=== PATIENT | female | born 1955 | race Two or more races ===

== ENCOUNTER 2017-03-28 08:25 | Day surgery (SDC) | payer MEDICARE, OTHER ==
--- NOTE | 2017-03-27 19:31 | Pre-op HX & Phy Repo 2 SIG ---
DATE OF ADMISSION: 03/28/2017 The patient is scheduled for surgery on 03/28/2017 CHIEF COMPLAINT: Gallstones. History Of Present Illness: This 61-year-old morbidly obese, diabetic female presents with a three year history of recurring upper abdominal pain, sometimes accompanied by nausea. She was found to have gallstones. She denies any history of jaundice or fever. PAST MEDICAL HISTORY: Previous section x1. ALLERGIES: None known. Medications: Aspirin 81 mg, omeprazole 40 mg a day, metformin, and Lantus insulin sliding scale. SOCIAL HISTORY: Tobacco, none. Alcohol, none. Family History: Positive for malignancy of the patient's father and grandmother. There is no family history of diabetes and hypertension. REVIEW OF SYSTEMS: Essentially negative. PHYSICAL EXAMINATION: General: Reveals a moderately obese, female, in no acute distress. HEENT: Normocephalic. Pupils are equal and reactive to light. There was no scleral icterus. NECK: Supple without adenopathy. LUNGS: Clear. HEART: Showed a regular rhythm. Abdomen: Abdomen was massive. There were no masses. There was some discomfort in the right upper quadrant. There is reducible umbilical hernia. There is a low midline scar from previous section. IMPRESSION: 1. Cholelithiasis. 2. Diabetes mellitus. 3. Morbid obesity. Plan: The patient will undergo the laparoscopic cholecystectomy, possible open cholecystectomy. The nature, risks, and benefits of the procedure were explained. Saleem Cabrera M.D. DR: DARRON JOB#: [id number] CC:
[2017-03-28] VITALS (13 sets, daily range): BP systolic 118–163; BP diastolic 60–77
[~2017-03-28] VITALS: Ht 157.5 cm; Wt 79.4 kg
--- NOTE | 2017-03-28 08:29 | Pre-Procedure Note/Attestation ---
Pre-Procedure Note/Attestation Complete Prior to Procedure Planned Procedure: not applicable Procedure Narrative: laparoscopic cholecystectomy, possible open cholecystectomy, possible cholangiogram Indications for Procedure Pre-Operative Diagnosis: cholelithiasis Attestation I attest that I discussed the nature of the procedure; its benefits; risks and complications; and alternatives (and the risks and benefits of such alternatives ), prior to the procedure, with the patient (or the patient's legal manufacturer's service representative). I attest that, if there was a reasonable possibility of needing a blood transfusion, the patient (or the patient's legal manufacturer's service representative) was given the [facility] standardized written summary, pursuant to the [employer] Blood Safety Act ([place] Health and Safety Code # 1645, as amended). I attest that I re-evaluated the patient just prior to the surgery and that there has been no change in the patient's H&P, except as documented below:none Saleem Cabrera MD Mar 28, 2017 08:29
[2017-03-28] MEDS ORDERED: CAL MAG ZINC +1 EAC1 PO (08:49)
[2017-03-28] MEDS ORDERED: GABAPENTIN600 MG ORAL (08:49)
[2017-03-28] MEDS ORDERED: ASPIR 8181 MG ORAL (08:49)
[2017-03-28] MEDS ORDERED: PAROXETINE HCL30 MG ORAL (08:49)
[2017-03-28] MEDS ORDERED: METFORMIN HCL850 M1 ORAL (08:49)
[2017-03-28] MEDS ORDERED: MELOXICAM7.5 MG/5 M ORAL (08:49)
[2017-03-28] MEDS ORDERED: LIPITOR80 MG ORAL (08:49)
[2017-03-28] MEDS ORDERED: OMEPRAZOLE20 M3 ORAL (08:49)
[2017-03-28] MEDS ORDERED: IBUPROFEN600 MG ORAL (08:49)
[2017-03-28] MEDS ORDERED: LANTUS SOL100 UNIT/1 SUBQ (09:16)
[2017-03-28] MEDS ORDERED: Bupivacaine w/Epi 0.25% 30ml Vial INJ ONE (09:34)
[2017-03-28] MEDS ORDERED: Propofol 200mg/20ml IV ONE (09:34)
[2017-03-28] MEDS ORDERED: Zemuron 50mg/5ml Inj IV ONE (09:45)
[2017-03-28] MEDS ORDERED: fentaNYL 100 mcg/2 mL IV ONE (09:45)
[2017-03-28] MEDS ORDERED: Ketorolac 30mg Inj ONE (09:45)
[2017-03-28] MEDS ORDERED: Glycopyrrolate 0.2mg/ml 1ml Vial ONE (09:45)
[2017-03-28] MEDS ORDERED: Midazolam 2mg/2ml Inj ONE (09:45)
[2017-03-28] MEDS ORDERED: Sodium Chloride 10ml vial INJ ONE (09:45)
[2017-03-28] MEDS ORDERED: Lidocaine 1% MPF 10mg/ml 5ml ONE (09:45)
[2017-03-28] MEDS ORDERED: Succinylcholine 20mg/ml 10ml vial ONE (09:45)
[2017-03-28] MEDS ORDERED: LR 1000ml ONE (09:45)
[2017-03-28] MEDS ORDERED: ePHEDrine 50mg/ml Inj ONE (09:45)
[2017-03-28] MEDS ORDERED: NS Irrig 1000ml ONE (09:45)
[2017-03-28] MEDS ORDERED: Sterile Water Irrig 1000ml IRRIG ONE (09:45)
[2017-03-28] MEDS ORDERED: Neostigmine 1mg/ml 10ml Inj ONE (09:45)
[2017-03-28] MEDS ORDERED: NS Irrig 1000ml IRRIG ONE (10:00)
[2017-03-28] MEDS ORDERED: LR 1000ml 1,000 ML IVLG SCH (10:47)
--- NOTE | 2017-03-28 10:47 | Anethesia Preoperative Eval ---
Anesthesia Pre-op PMH/ROS General Date of Evaluation: Mar 28, 2017 Time of Evaluation: 09:40 Anesthesiologist: Mady ASA Score: ASA 3 Mallampati Score Class I : Soft palate, uvula, fauces, pillars visible Class II: Soft palate, uvula, fauces visible Class III: Soft palate, base of uvula visible Class IV: Only hard plate visible Mallampati Classification: Class III Surgeon: Rick Diagnosis: Symptomatic cholelitiasis Surgical Procedure: Laparoscopic cholecystectomy Anesthesia History: none Family History: no anesthesia problems Allergies: Coded Allergies: No Known Allergies (Unverified , 03/27/17) Medications: see eMAR Past Medical History Cardiovascular: Reports: HTN, Denies: CAD, [place], valve dz, arrhythmia, other Pulmonary: Reports: YARITZA, Denies: asthma, COPD, other Gastrointestinal/Genitourinary: Reports: GERD, Denies: CRI, ESRD, other Neurologic/Psychiatric: Denies: dementia, CVA, depression/anxiety, TIA, other Endocrine: Reports: DM - on insulin, Denies: hypothyroidism, steroids, other HEENT: Denies: cataract (L), cataract (R), glaucoma, KALTAG (L), KALTAG (R), other Hematology/Immune: Denies: anemia, DVT, bleeding disorder, other Musculoskeletal/Integumentary: Reports: DJD, Denies: OA, RA, DDD, edema, other Other: obesity - morbid obesity, weights at list a 110 kg. BMI around 45 PMH Narrative: as above, recurrent abdominal pain PSxH Narrative: Anesthesia Pre-op Phys. Exam Physician Exam Last Vital Signs Date Time Temp Pulse Resp B/P (MAP) Pulse Ox O2 Delivery O2 Flow Rate FiO2 03/28/17 09:06 97.5 59 17 136/77 94 Room Air Constitutional: NAD Neurologic: CN 2-12 intact Cardiovascular: RRR Respiratory: other - diminished breath sounds Gastrointestinal: other - morbid obesity Airway Exam Mallampati Score: Class III MO: full Neck: short ROM: limited Teeth: intact Dentures: no upper, no lower Anesthesia Pre-op A/P Labs see chart Accucheck 129 at admission Studies Pre-op Studies: EKG - NSR Risk Assessment & Plan Assessment: ASA 3 Plan: GA with ETT Considering patients preexisting condition - morbid obesity YARITZA she may not be a good candidate for outpatient procedure for better pain control and safe monitoring I would suggest 23 hour inpatient observation. Status Change Before Surgery: No Pre-Antibiotics Drug: Ancef 1 gr. Given Within 1 Hr of Incision: Yes Time Given: 10:12 ROLANDA ANAYA M.D. Mar 28, 2017 10:47
[2017-03-28] MEDS ORDERED: Hydromorphone 0.5mg/0.5ml inj IVP PRN (11:00)
[2017-03-28] MEDS ORDERED: Midazolam 2mg/2ml Inj IVP PRN (11:00)
[2017-03-28] MEDS ORDERED: Ketorolac 30mg Inj IV PRN (11:00)
[2017-03-28] MEDS ORDERED: Meperidine 25mg/0.5ml Inj (FOR RIGORS ONLY) IV PRN (11:00)
[2017-03-28] MEDS ORDERED: DiphenhydrAMINE 50mg/ml Inj IVP PRN (11:00)
[2017-03-28] MEDS ORDERED: Metoclopramide 10mg/2ml Inj IVP PRN (11:00)
--- NOTE | 2017-03-28 11:14 | Brief Operative Note ---
Immediate Post Operative Note Operative Note Pre-op Diagnosis: cholelithiasis Procedure: laparoscopic cholecystectomy Post-op Diagnosis: cholelithiasis Surgeon: Lucía Cabrera MD Dog Sitter: Deja Cherry MD Anesthesiologist: Carl Earl MD Anesthesia: general Specimen: yes Complications: none Condition: stable Fluids: 800 ml Estimated Blood Loss: minimal Drains: none Implant(s) used?: No Saleem Cabrera MD Mar 28, 2017 11:13
[2017-03-28] MEDS ORDERED: Norco 5mg/325mg tab ORAL PRN (11:15)
[2017-03-28] MEDS ORDERED: HYDROmorphone 1mg/ml Carpuject SUBQ PRN (11:15)
[2017-03-28] MEDS ORDERED: Tylenol #3 tab (300mg/30mg) ORAL PRN (11:15)
[2017-03-28] MEDS ORDERED: D5 1/2NS 1,000 ML IV SCH (11:15)
--- NOTE | 2017-03-28 11:25 | Immediate Post-Op Evaluation ---
Immediate Post-Op Evalulation Immediate Post-Op Evalulation Procedure: Laparoscopic cholecystectomy Date of Evaluation: Mar 28, 2017 Time of Evaluation: 11:24 IV Fluids: 800 Blood Products: none Estimated Blood Loss: min Urinary Output: none Blood Pressure Systolic: 148 Blood Pressure Diastolic: 60 Pulse Rate: 79 Respiratory Rate: 20 O2 Sat by Pulse Oximetry: 99 Temperature (Fahrenheit): 97.8 Pain Score (1-10): 2 Nausea: No Vomiting: No Complications none Patient Status: reacts, patent, extubated, none Hydration Status: adequate ROLANDA ANAYA M.D. Mar 28, 2017 11:25
--- NOTE | 2017-03-28 18:16 | Operative Note - Dictated ---
DATE OF OPERATION: 03/28/2017 PREOPERATIVE DIAGNOSIS: Cholelithiasis. POSTOPERATIVE DIAGNOSIS: Cholelithiasis. PROCEDURE: Laparoscopic cholecystectomy. SURGEON: Saleem Cabrera M.D. OPTICAL LAB TECHNICIAN: Nicolás Cherry M.D. ANESTHESIA: General endotracheal. ANESTHESIOLOGIST: Hipolito Earl M.D. Indications For Surgery: This 61-year-old morbidly obese, diabetic female presented with recurring problems of postprandial pain. An ultrasound revealed cholelithiasis. She was advised to undergo laparoscopic cholecystectomy. The nature, risks, and benefits of the procedure were explained including the possibility of converting to an open cholecystectomy. Operative Findings: Exploration of the abdominal cavity through a laparoscope revealed a normal-sized liver. The gallbladder had pliable wall. There were some adhesions to the neck of the gallbladder. No abnormalities were noted on the stomach or duodenum. There was a fat-containing umbilical hernia present, which had some extruded omentum. There was no bowel seen in the hernia. Operative Technique: With the patient in the supine position and after induction of adequate general endotracheal anesthesia, the abdomen was prepped and draped in sterile fashion. Time-out was called. A small vertical incision was made two fingerbreadths above the umbilicus. The subcutaneous tissue was divided by sharp dissection with a scalpel. Several bleeding points were cauterized. A 5-mm trocar was carefully inserted with the help of the Devtoo apparatus. With the trocar in place, the abdomen was insufflated with carbon dioxide. An 11 mm trocar was introduced in the subxiphoid region slightly to the right of the midline. The camera was then switched to a 10 mm 30-degree angled laparoscope through the subxiphoid incision. The supraumbilical 5 mm trocar was switched to a 10 mm trocar. Two 5 mm ports were introduced in the right mid abdomen, one near the anterior axillary line and one near the midclavicular line. Through the lateral 5 mm port, a ratcheted grasper was used to elevate the fundus of the gallbladder. Some flimsy adhesions to the neck of the gallbladder were taken down by blunt dissection and electrocautery. The neck of the gallbladder was grasped with a grasper through the mid 5 mm port. Some fibrofatty tissue was carefully dissected near the neck of the gallbladder exposing the cystic duct. The cystic duct was doubly hemoclipped and divided. The cystic artery was identified and dissected. The structure was doubly hemoclipped and divided. The gallbladder was slowly dissected off of liver bed by blunt dissection and electrocautery. The gallbladder was removed through the subxiphoid port with the help of an EndoCatch apparatus. The right subphrenic space was irrigated and aspirated. There was no evidence of hemorrhage nor bile leak. The right subhepatic space was irrigated and aspirated. Several oozing points in the liver bed were cauterized. The trocar ports were removed under laparoscopic visualization. The puncture wounds were closed with interrupted 4-0 Monocryl subcuticular sutures. The puncture wounds were injected with 0.25% Marcaine with epinephrine solution. Sterile dressings were applied. The patient tolerated the procedure well and was returned to the recovery room extubated in stable condition. ESTIMATED BLOOD LOSS: A 10 mL. Saleem Cabrera M.D. DR: MONIQUE JOB#: [id number] CC:
[2017-03-29 09:59] VITALS: BP 136/72
--- NOTE | 2017-03-29 09:59 | 48 Hour Post Anesthesia Eval ---
Post Anesthesia Evaluation Procedure: Laparoscopic cholecystectomy Date of Evaluation: Mar 28, 2017 Time of Evaluation: 13:10 Blood Pressure Systolic: 136 0: 72 Pulse Rate: 72 Respiratory Rate: 22 Temperature (Fahrenheit): 97.6 O2 Sat by Pulse Oximetry: 98 Airway: patent Nausea: No Vomiting: No Pain Intensity: 2 Hydration Status: adequate Cardiopulmonary Status: stable Mental Status/LOC: patient returned to baseline Follow-up Care/Observations: n/a Post-Anesthesia Complications: none Follow-up care needed: ready to discharge ROLANDA ANAYA M.D. Mar 29, 2017 09:59
== END 2017-03-28 14:20 | disposition home or self-care (01) ==
LOC: SUR 08:25
DX: K80.10 Calculus of gallbladder with chronic cholecystitis without obstruction (principal); K42.9 Umbilical hernia without obstruction or gangrene; E66.01 Morbid (severe) obesity due to excess calories; Z68.32 Body mass index [BMI] 32.0-32.9, adult; E11.8 Type 2 diabetes mellitus with unspecified complications; M19.90 Unspecified osteoarthritis, unspecified site; I10 Essential (primary) hypertension; G47.33 Obstructive sleep apnea (adult) (pediatric); K21.9 Gastro-esophageal reflux disease without esophagitis; Z79.4 Long term (current) use of insulin; Z90.710 Acquired absence of both cervix and uterus; Z79.82 Long term (current) use of aspirin
CPT/HCPCS: 47562; 82962; J0330; J1170; J1885; J2250; J2405; J2710; J3010; J7120; 94003; 94150; J2180